=== PATIENT | male | born 1960 | race Caucasian/White ===

== ENCOUNTER 2017-01-08 03:20 | Emergency (ER) | payer MEDICARE, MEDICAID ==
[2017-01-08 03:23] VITALS: BP 143/105
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
[2017-01-08] MEDS ORDERED: Ibuprofen 800 MG Tab PO ONE (03:31)
--- NOTE | 2017-01-08 07:54 | CR ---
Left tibia and fibula: AP and lateral views of the left tibia and fibula were obtained. Comparison: No previous study. Degenerative change is seen within the knee. Ankle mortise is symmetric. Incidental spur at the attachment of the Achilles tendon to the calcaneus is seen. Mild deformity of the posterior malleolus is seen compatible with old injury. Detached bony density is noted off the anterior tibial tuberosity which is old. Nothing acute is seen. Impression: 1. Findings as noted above. No acute abnormality is identified on left tibia and fibula study. Diagnostic code #2
--- NOTE | 2017-01-08 07:55 | CR ---
Left knee: Three views of the left knee were obtained. Lateral positioning is suboptimal. Technique is also suboptimal. Degenerative spurring is noted off the medial and lateral compartments. Spurring noted at the attachment of the quadriceps and patellar tendons to the patella. Detached bony density is noted off the anterior tibial tuberosity which appears old. Mild spurring is noted off the lateral patellofemoral joint. Osteophytes are noted off the medial and lateral knee. Impression: 1. Degenerative change as noted above. No acute abnormality is appreciated on left knee exam. Diagnostic code #2
== END 2017-01-08 06:20 | disposition home or self-care (01) ==
LOC: JD.ED 03:20
DX: S80.02XA Contusion of left knee, initial encounter (principal); I10 Essential (primary) hypertension; J45.909 Unspecified asthma, uncomplicated; J44.9 Chronic obstructive pulmonary disease, unspecified; M19.90 Unspecified osteoarthritis, unspecified site; E66.9 Obesity, unspecified; Z87.891 Personal history of nicotine dependence; Z79.899 Other long term (current) drug therapy; V89.2XXA Person injured in unspecified motor-vehicle accident, traffic, initial encounter; Y92.410 Unspecified street and highway as the place of occurrence of the external cause
CPT/HCPCS: 73562; 73590; 99284; A9270; 99282

== ENCOUNTER 2020-02-01 05:27 | Emergency (ER) | payer MEDICARE, MEDICAID ==
[2020-02-01 06:10] VITALS: BP 191/96; PULSE 101
--- NOTE | 2020-02-01 06:37 | EDM.PDOC ---
<Benigno Riley - Last Filed: 02/01/20 08:30> ED HPI GENERAL MEDICAL PROBLEM - General Chief Complaint: Gastrointestinal Problem Stated Complaint: BLOOD IN STOOL Time Seen by Provider: 02/01/20 05:57 - Related Data Allergies Allergy/AdvReac Type Severity Reaction Status Date / Time No Known Allergies Allergy Verified 02/01/20 06:10 Home Meds: Home Meds Docusate Sodium [Stool Softener] 1 tab PO DAILY 10/08/15 [History] Albuterol/Ipratropium [DuoNeb 3.0-0.5 MG/3 ML] 3 ml NEB QID 10/17/15 [History] Metoprolol Succinate [Toprol Xl] 100 mg PO DAILY 10/17/15 [History] Cyclobenzaprine [Flexeril] 10 mg PO DAILY 01/08/17 [History] Course - Re-Assessments/Exams Free Text/Narrative Re-Assessment/Exam: 02/01/20 08:[address] Freire at change os shift. fleet enema with mineral oil was essentially ineffective for BM. KUB reveals increased stool in the descending colon and only mild stool Rt hemicolon. Plan: SS enema. Willl be discharged to take Citroma 8 oz po to provide bowl cleanse. Eventually patient reveals severe degenerative change within both hips with deformity of the femoral heads and the neck. Degenerative changes throughout the lumbar spine also appreciated with diffuse disc space narrowing as well as endplate osteophytes. SI joints appear to be within normal limits. Lysed him to purchase MiraLAX powder sent and take 17 g once daily to prevent further constipation problems. Departure - Departure Time of Disposition: 08:33 Disposition: Home, Self-Care 01 Condition: Fair Clinical Impression: Constipation by delayed colonic transit, Degenerative localized arthritis of hip - Discharge Information Instructions: Constipation, Adult, [id number] Referrals: Loren Ram NP [Primary Care Provider] - Messi Payton DO [Physician] - Forms: ED Department Discharge Additional Instructions: You were evaluated in the emergency room today in regards to constipation with no good bowel movement for about a week. X-rays reveal increased stool throughout about half of the colon. He was treated with a Fleet enema with mineral oil which was relatively ineffective. He was then given a soapsuds enema to help remove the lower colonic stool plug. Worked relatively well. Suggest taking magnesium citrate or Citroma 8 ounces by mouth when you get home this morning. Mixed with 4 to 6 ounces of juice of choice. This will usually start to work in an hour and your bowels will usually move 3 or 4 times providing complete bowel cleanse. I would suggest picking up MiraLAX powder which comes in a large container like a cookie jar. 1 scoop or 17 g daily will usually prevent constipation from reoccurring. Follow up with personal care doctor if any other problems occur. <Patrick Freire - Last Filed: 02/01/20 18:53> ED HPI GENERAL MEDICAL PROBLEM - General Source of Information: Reports: Patient History Limitations: Reports: No Limitations - History of Present Illness INITIAL COMMENTS - FREE TEXT/NARRATIVE: Mr. Armando is a very pleasant 59-year-old gentleman who now presents to the ED stating that he has not had a bowel movement in about a week, despite taking stool softeners on a regular basis. He has developed rectal urgency, and has been straining at the stool. He noticed blood on the toilet paper when he attempted to have a bowel movement this morning. Here in the ED, the patient's initial BP is found to be elevated at 191/96, with a tachycardia of 101 bpm. He is afebrile, saturating 95% on room air. The patient states that he has not taken his morning blood pressure medicines today. Other than the constipation issue, the patient denies recent fever, chills, sore throat, ear pain, nasal or sinus congestion, cough, dyspnea, chest pain, palpitations, nausea, vomiting, diarrhea, abdominal pain, urinary symptoms, recent weight gain or weight loss, recent bloody bowel movements or black bowel movements, recent joint aches, headaches, or rashes. The patient's PCP is Loren Ram NP. His medical marijuana is prescribed by Dr. Messi Payton, a cosmetic crm specialist in [place]. Past Medical History Cardiovascular History: Reports: Hypertension Musculoskeletal History: Reports: Osteoarthritis Psychiatric History: Reports: Addiction (opioids) Endocrine/Metabolic History: Reports: Obesity/BMI 30+ - Infectious Disease History Infectious Disease History: Reports: MRSA - Past Surgical History GI Surgical History: Reports: Hernia, Abdominal (periumbilical, as a child) Social & Family History - Tobacco Use Smoking Status *Q: Former Smoker Years of Tobacco use: 38 Packs/Tins Daily: 2 Month/Year Tobacco Last Used: Quit 2017 - Alcohol Use Alcohol Use History: Yes Alcohol Use Frequency: Socially - Recreational Drug Use Recreational Drug Use: Yes Drug Use in Last 12 Months: Yes Recreational Drug Type: Reports: Marijuana/Hashish (smokes daily), Other (see below) (Previous addiction to opioids) - Living Situation & Occupation Living situation: Reports: Single, Alone Occupation: Unemployed ED ROS GENERAL - Review of Systems Review Of Systems: Comprehensive ROS is negative, except as noted in HPI. Musculoskeletal: Reports: Back Pain (chronic) ED EXAM, GI/ABD - Physical Exam Exam: See Below Exam Limited By: No Limitations General Appearance: Alert, WD/WN, No Apparent Distress Eyes: Bilateral: Normal Appearance, EOMI Ears: Normal External Exam, Hearing Grossly Normal Nose: Normal Inspection Throat/Mouth: Normal Inspection, Normal Lips, Normal Voice, No Airway Compromise Head: Atraumatic, Normocephalic Neck: Normal Inspection, Full Range of Motion Respiratory/Chest: No Respiratory Distress, Lungs Clear, Normal Breath Sounds, No Accessory Muscle Use Cardiovascular: Normal Peripheral Pulses, Regular Rate, Rhythm, No Edema, No Gallop, No JVD, No Murmur, No Rub GI/Abdominal Exam: Normal Bowel Sounds, Soft, Non-Tender, No Organomegaly, No Distention, No Abnormal Bruit, No Mass (Male) Exam: Deferred Rectal (Males) Exam: Normal Rectal Tone, Heme + Stool (very firm) Back Exam: Normal Inspection, Full Range of Motion, NT Extremities: Normal Inspection, Normal Range of Motion, No Pedal Edema, Normal Capillary Refill Neurological: Alert, Oriented, Normal Cognition, No Motor/Sensory Deficits Psychiatric: Normal Affect Skin Exam: Warm, Dry, Intact, Normal Color, No Rash Course - Vital Signs Last Recorded V/S: Last Vital Signs Temp 36.4 C 02/01/20 06:02 Pulse 101 H 02/01/20 06:02 Resp 20 02/01/20 06:02 BP 191/96 H 02/01/20 06:02 Pulse Ox 95 02/01/20 06:02 - Orders/Labs/Meds Orders: Active Orders 24 hr Category Date Time Status Enema [RC] ASDIRECTED Care 02/01/20 06:35 Active Meds: Medications Discontinued Medications Generic Name Dose Route Start Last Admin Trade Name Freq PRN Reason Stop Dose Admin Magnesium Citrate 240 ml 02/01/20 08:19 02/01/20 08:31 Citrate Of Magnesia PO 02/01/20 08:20 240 ml ONETIME ONE Administration - Re-Assessments/Exams Free Text/Narrative Re-Assessment/Exam: 02/01/20 06:32 As above, the patient states that he has not had a bowel movement in about a week, that he has been taking stool softeners but is still straining at the stool, then had blood on the toilet paper this morning. On rectal examination, the patient has very firm stool that would likely benefit from disimpaction, however, it is just beyond the reach of my finger, therefore we will need to try to soften the stool with an enema. The patient has agreed. 02/01/20 07:[address] Riley, and care of the patient turned over to him at this time, for change of shift. 02/01/20 07:32 Notified by Sandra ROSALES that the patient had no stool output following a mineral oil enema. I have therefore ordered a flat abdomen x-ray as well as a soapsuds enema. 02/01/20 07:[address] Riley, and care of the patient turned over to him at this time, for change of shift. Departure - Discharge Information *PRESCRIPTION DRUG MONITORING PROGRAM REVIEWED*: Not Applicable *COPY OF PRESCRIPTION DRUG MONITORING REPORT IN PATIENT JUSTA: Not Applicable Sepsis Event Note (ED) - Evaluation Sepsis Screening Result: No Definite Risk - My Orders Last 24 Hours: My Active Orders 02/01/20 06:35 Enema [RC] ASDIRECTED - Assessment/Plan Last 24 Hours: My Active Orders 02/01/20 06:35 Enema [RC] ASDIRECTED
[2020-02-01] MEDS ORDERED: Magnesium Citrate Solution 296 ML Bottle PO ONE (08:19)
--- NOTE | 2020-02-01 08:26 | CR ---
Abdomen: Supine view of the abdomen was obtained. Comparison: No previous abdominal x-ray. Severe degenerative change noted within both hips. Deformity of both femoral heads and neck is seen. Diffuse joint space narrowing and subchondral cysts are seen. Diffuse disc space narrowing is noted within the visualized lower lumbar spine as well as endplate osteophytes. Sacroiliac joints appear within normal limits. Bowel gas pattern is normal. No abnormal calcifications or soft tissue abnormality is seen. Impression: 1. Severe degenerative change within both hips with deformity of the femoral heads and neck. 2. Degenerative change within the lumbar spine. 3. Nothing acute is otherwise is seen on supine abdominal x-ray. Diagnostic code #2 This report was dictated in MDT
== END 2020-02-01 08:35 | disposition home or self-care (01) ==
LOC: JD.ED 05:27
DX: K59.01 Slow transit constipation (principal); M16.10 Unilateral primary osteoarthritis, unspecified hip; I10 Essential (primary) hypertension; E66.9 Obesity, unspecified; Z87.891 Personal history of nicotine dependence; Z79.899 Other long term (current) drug therapy; Z68.41 Body mass index [BMI] 40.0-44.9, adult
CPT/HCPCS: 74018; 99283; A9270; 99282

== ENCOUNTER 2020-02-01 18:52 | Emergency (ER) | payer MEDICARE, MEDICAID ==
--- NOTE | 2020-02-01 20:19 | EDM.PDOC ---
ED HPI GENERAL MEDICAL PROBLEM - General Chief Complaint: Chest Pain Stated Complaint: NEW MEDS NOT FEELING WELL Time Seen by Provider: 02/01/20 20:01 Source of Information: Reports: Patient History Limitations: Reports: No Limitations - History of Present Illness INITIAL COMMENTS - FREE TEXT/NARRATIVE: Mr. Armando is a very pleasant 59-year-old gentleman who was seen by me in this ED this morning, with a complaint at that time of constipation, not having had a bowel movement in about a week, despite taking stool softeners on a regular basis. He had developed rectal urgency, and had been straining at the stool. He noticed blood on the toilet paper when he attempted to have a bowel movement this morning, which prompted him to come to the ED. On rectal exam, the patient was found to have a very firm heme positive stool. He was given an enema with no stool output. A subsequent flat plate abdominal x-ray demonstrated some stool in the descending colon, but no stool in the rectum. He was given an additional enema with the recommendation that he drink 8 ounces of Citroma to provide a bowel cleanse, then start taking MiraLAX 17 g daily to prevent constipation in the future. The patient now returns to the ED stating that his sister thought he should come, because she thought he was having a stroke. The patient reports that he felt lightheaded today, but he is unable to say when that began, and he is unable to say whether or not it is modifiable with position. He also states that he had some retrosternal chest discomfort, possibly crampy, possibly pinching sensation, since around 16:00. He does not recall if it was sudden onset or gradual onset, and he is unable to say whether it has been constant or variable. When asked about this, he repeatedly defers to his sister, stating that she thought that he was having a stroke. It is unclear if the patient himself actually experienced chest discomfort. The patient also reports having left shoulder pain since this morning, ever since I asked him to roll over onto his left side so that I could perform a rectal exam. The patient states that he has had similar symptoms a few times in the past, and states that he has been work-up in the past, but does not recall what the diagnosis or recommended treatment was. The patient states that he did not drink Citroma after discharge from the ED this morning, that he had a bowel movement, and that he now feels fine. Here in the ED, the patient's initial BP is found to be elevated at 152/85, otherwise, he is hemodynamically stable, afebrile, saturating 95% on room air. Other than his constipation issue, and today's lightheadedness and possible chest discomfort, the patient denies recent fever, chills, sore throat, ear pain, nasal or sinus congestion, cough, dyspnea, palpitations, nausea, vomiting, diarrhea, abdominal pain, urinary symptoms, recent weight gain or weight loss, recent bloody bowel movements or black bowel movements, recent joint aches, headaches, or rashes. The patient's PCP is Loren Ram NP. His medical marijuana is prescribed by Dr. Messi Payton, a cosmetic sight effects specialist in [place]. Left Shoulder Pain Score (Numeric/FACES): 4 - Related Data Allergies Allergy/AdvReac Type Severity Reaction Status Date / Time No Known Allergies Allergy Verified 02/01/20 19:08 Home Meds: Home Meds Docusate Sodium [Stool Softener] 1 tab PO DAILY 10/08/15 [History] Albuterol/Ipratropium [DuoNeb 3.0-0.5 MG/3 ML] 3 ml NEB QID 10/17/15 [History] Metoprolol Succinate [Toprol Xl] 100 mg PO DAILY 10/17/15 [History] Cyclobenzaprine [Flexeril] 10 mg PO DAILY 01/08/17 [History] Past Medical History Cardiovascular History: Reports: Hypertension Musculoskeletal History: Reports: Osteoarthritis Psychiatric History: Reports: Addiction (opioids) Endocrine/Metabolic History: Reports: Obesity/BMI 30+ - Infectious Disease History Infectious Disease History: Reports: MRSA - Past Surgical History GI Surgical History: Reports: Hernia, Abdominal (periumbilical, as a child) Social & Family History - Tobacco Use Smoking Status *Q: Former Smoker Years of Tobacco use: 38 Packs/Tins Daily: 2 Month/Year Tobacco Last Used: Quit 2017 - Caffeine Use Caffeine Use: Reports: None - Alcohol Use Alcohol Use History: Yes Alcohol Use Frequency: Socially - Recreational Drug Use Recreational Drug Use: Yes Drug Use in Last 12 Months: Yes Recreational Drug Type: Reports: Marijuana/Hashish (smokes daily), Other (see below) (Previous addiction to opioids) - Living Situation & Occupation Living situation: Reports: Single, Alone Occupation: Unemployed ED ROS GENERAL - Review of Systems Review Of Systems: Comprehensive ROS is negative, except as noted in HPI. ED EXAM, GENERAL - Physical Exam Exam: See Below Exam Limited By: No Limitations General Appearance: Alert, WD/WN, No Apparent Distress Eye Exam: Bilateral Eye: EOMI, Normal Inspection Ears: Normal External Exam, Hearing Grossly Normal Nose: Normal Inspection Throat/Mouth: Normal Inspection, Normal Lips, Normal Voice, No Airway Compromise Head: Atraumatic, Normocephalic Neck: Normal Inspection, Full Range of Motion Respiratory/Chest: No Respiratory Distress, Lungs Clear, Normal Breath Sounds, No Accessory Muscle Use Cardiovascular: Normal Peripheral Pulses, Regular Rate, Rhythm, No Gallop, No JVD, No Murmur, No Rub Peripheral Pulses: 3+: Radial (L), Radial (R) GI/Abdominal: Normal Bowel Sounds, Soft, Non-Tender, No Organomegaly, No Distention, No Abnormal Bruit, No Mass (Male) Exam: Deferred Rectal (Males) Exam: Deferred Back Exam: Normal Inspection, Full Range of Motion, NT Extremities: Normal Inspection, Normal Range of Motion, No Pedal Edema, Normal Capillary Refill Neurological: Alert, Oriented, Normal Cognition, No Motor/Sensory Deficits Psychiatric: Normal Affect Skin Exam: Warm, Dry, Intact, Normal Color, No Rash EKG INTERPRETATION EKG Date: 02/01/20 Time: 19:37 Rhythm: NSR Rate (Beats/Min): 93 [place]: Normal P-Wave: Enlarged (LAE) QRS: Normal ST-T: Normal QT: Normal Comparison: No Change (10/24/2015) Course - Vital Signs Last Recorded V/S: Last Vital Signs Temp 36.1 C 02/01/20 19:00 Pulse 99 02/01/20 19:00 Resp 22 H 02/01/20 19:00 BP 152/85 H 02/01/20 19:00 Pulse Ox 95 02/01/20 19:00 Orthostatic Blood Pressure [ 173/90 Standing] Orthostatic Blood Pressure [ 155/78 Supine] - Orders/Labs/Meds Orders: Active Orders 24 hr Category Date Time Status EKG Documentation Completion [RC] ASDIRECTED Care 02/01/20 19:31 Active Orthostatic Vital Signs [RC] STAT Care 02/01/20 20:15 Active Ang Chest [CT] Stat Exams 02/01/20 22:00 Taken Chest 2V [CR] Stat Exams 02/01/20 20:15 Taken Sodium Chloride 0.9% [Normal Saline] 1,000 ml Med 02/01/20 22:00 Active IV ASDIRECTED EKG 12 Lead [EK] Stat Ther 02/01/20 19:30 Ordered Medication Orders Sodium Chloride (Normal Saline) 1,000 mls @ 150 mls/hr IV ASDIRECTED GRACE Last Admin: 02/01/20 22:12 Dose: 150 mls/hr Documented by: ASHLYN Labs: Laboratory Tests 02/01/20 02/01/20 02/01/20 Range/Units 19:36 19:36 19:36 WBC 10.04 H (4.23-9.07) K/mm3 RBC 4.98 (4.63-6.08) M/mm3 Hgb 13.9 D (13.7-17.5) gm/dl Hct 42.5 (40.1-51.0) % MCV 85.3 D (79.0-92.2) fl MCH 27.9 (25.7-32.2) pg MCHC 32.7 (32.2-35.5) g/dl RDW Std Deviation 43.0 (35.1-43.9) fL Plt Count 203 D (163-337) K/mm3 MPV 11.1 (9.4-12.3) fl Neut % (Auto) 80.9 H (34.0-67.9) % Lymph % (Auto) 10.4 L (21.8-53.1) % [place] % (Auto) 8.2 (5.3-12.2) % Eos % (Auto) 0.1 L (0.8-7.0) Baso % (Auto) 0.2 (0.1-1.2) % Neut # (Auto) 8.13 H (1.78-5.38) K/mm3 Lymph # (Auto) 1.04 L (1.32-3.57) K/mm3 [place] # (Auto) 0.82 (0.30-0.82) K/mm3 Eos # (Auto) 0.01 L (0.04-0.54) K/mm3 Baso # (Auto) 0.02 (0.01-0.08) K/mm3 Manual Slide Review Abnormal smear D-Dimer, Quantitative (0.19-0.50) mg/L Sodium 142 (136-145) mEq/L Potassium 3.2 L (3.5-5.1) mEq/L Chloride 104 (98-107) mEq/L Carbon Dioxide 24 (21-32) mEq/L Anion Gap 17.2 H (5-15) BUN 24 H (7-18) mg/dL Creatinine 1.2 (0.7-1.3) mg/dL Est Cr Clr Drug Dosing 67.92 mL/min Estimated GFR (MDRD) > 60 (>60) mL/min BUN/Creatinine Ratio 20.0 H (14-18) Glucose 103 (74-106) mg/dL Calcium 9.3 (8.5-10.1) mg/dL Magnesium 1.7 L (1.8-2.4) mg/dl Total Bilirubin 1.0 (0.2-1.0) mg/dL AST 31 (15-37) U/L ALT 35 (16-63) U/L Alkaline Phosphatase 71 (46-116) U/L Troponin I < 0.017 (0.00-0.056) ng/mL Total Protein 7.9 (6.4-8.2) g/dl Albumin 4.2 (3.4-5.0) g/dl Globulin 3.7 gm/dL Albumin/Globulin Ratio 1.1 (1-2) /23/20 Range/Units 20:25 WBC (4.23-9.07) K/mm3 RBC (4.63-6.08) M/mm3 Hgb (13.7-17.5) gm/dl Hct (40.1-51.0) % MCV (79.0-92.2) fl MCH (25.7-32.2) pg MCHC (32.2-35.5) g/dl RDW Std Deviation (35.1-43.9) fL Plt Count (163-337) K/mm3 MPV (9.4-12.3) fl Neut % (Auto) (34.0-67.9) % Lymph % (Auto) (21.8-53.1) % [place] % (Auto) (5.3-12.2) % Eos % (Auto) (0.8-7.0) Baso % (Auto) (0.1-1.2) % Neut # (Auto) (1.78-5.38) K/mm3 Lymph # (Auto) (1.32-3.57) K/mm3 [place] # (Auto) (0.30-0.82) K/mm3 Eos # (Auto) (0.04-0.54) K/mm3 Baso # (Auto) (0.01-0.08) K/mm3 Manual Slide Review D-Dimer, Quantitative 0.96 H (0.19-0.50) mg/L Sodium (136-145) mEq/L Potassium (3.5-5.1) mEq/L Chloride (98-107) mEq/L Carbon Dioxide (21-32) mEq/L Anion Gap (5-15) BUN (7-18) mg/dL Creatinine (0.7-1.3) mg/dL Est Cr Clr Drug Dosing mL/min Estimated GFR (MDRD) (>60) mL/min BUN/Creatinine Ratio (14-18) Glucose (74-106) mg/dL Calcium (8.5-10.1) mg/dL Magnesium (1.8-2.4) mg/dl Total Bilirubin (0.2-1.0) mg/dL AST (15-37) U/L ALT (16-63) U/L Alkaline Phosphatase (46-116) U/L Troponin I (0.00-0.056) ng/mL Total Protein (6.4-8.2) g/dl Albumin (3.4-5.0) g/dl Globulin gm/dL Albumin/Globulin Ratio (1-2) Meds: Medications Generic Name Dose Route Start Last Admin Trade Name Freq PRN Reason Stop Dose Admin Sodium Chloride 1,000 mls @ 150 mls/hr 02/01/20 22:00 02/01/20 22:12 Normal Saline IV 150 mls/hr ASDIRECTED GRACE Administration Discontinued Medications Generic Name Dose Route Start Last Admin Trade Name Freq PRN Reason Stop Dose Admin Potassium Chloride 40 meq 02/01/20 21:39 02/01/20 22:11 Klor-Con M20 PO 02/01/20 21:40 40 meq ONETIME ONE Administration - Re-Assessments/Exams Free Text/Narrative Re-Assessment/Exam: 02/01/20 20:16 As above, the patient returned to the ED after developing lightheadedness sometime today, and minimal retrosternal chest discomfort, possibly crampy versus pinching in character, around 16:00 this afternoon, however, it appears that the primary reason that the patient came to the ED is because, according to the patient, his sister told him that he might be having a stroke, even though he is not suffering from any focal neurologic deficits. I am not even certain that the patient was experiencing chest discomfort, because he keeps deferring to his sister when asked what happened that caused him to come to the ED. An ECG, obtained at triage, shows no ischemic changes. A CBC and CMP were already ordered. I have added a troponin, magnesium level, D-dimer, chest x- ray, and orthostatics. 02/01/20 21:39 Two-view chest radiograph appears to be grossly normal. The cardiac silhouette is within normal limits. No pulmonary vascular congestion. No pleural effusions. No focal infiltrate. No pneumothorax. Formal read per the Radiologist pending. 02/01/20 21:56 The patient is not orthostatic. His CBC is remarkable for a WBC count mildly elevated at 10.04, with the remainder of his CBC being unremarkable. His CMP is remarkable for a potassium mildly depressed at 3.2, and anion gap mildly elevated at 17.2 but with a bicarbonate normal at 24, and a BUN mildly elevated at 24 with a Cr normal at 1.2, with the remainder of his CMP being unremarkable. His magnesium level is slightly depressed at 1.7. His troponin is undetectably low. His D-dimer is mildly elevated at 0.96. 02/01/20 22:00 Test results discussed with the patient. As above, today's work-up is unremarkable, with the exception of a modestly elevated D-dimer. I do not feel that his elevated d-dimer is consistent with a pulmonary embolus, however, I did offer a CT angiogram if the patient wanted to be absolutely certain, and the patient agreed. I have therefore ordered a CT angiogram of the chest, along with IV fluid. 02/01/20 23:30 CT angiogram of the chest is read by Arleen as: 1. No pulmonary embolism within the main or lobar pulmonary arteries. 2. Small airways disease. Diffuse bronchial wall thickening with areas suggestive of mucous plugging. Bilateral multifocal poorly defined centrilobular nodules with upper lobe predominance, with questionable areas of tree-in-bud distribution. Differential diagnosis includes infectious etiologies, hypersensitivity pneumonitis and respiratory bronchiolitis interstitial lung disease, other etiologies are not excluded. 3. Additional nonacute findings as above. 02/01/20 23:33 CT results discussed with the patient. As above, the CT scan indicates that the patient has underlying interstitial lung disease. The patient has previously suspected asthma or COPD. No emergent change in his management is indicated. I will discharge him home. Departure - Departure Time of Disposition: 23:33 Disposition: Home, Self-Care 01 Condition: Good Clinical Impression: Lightheaded, Chest discomfort, Hypokalemia, Interstitial lung disease - Discharge Information *PRESCRIPTION DRUG MONITORING PROGRAM REVIEWED*: Not Applicable *COPY OF PRESCRIPTION DRUG MONITORING REPORT IN PATIENT JUSTA: Not Applicable Instructions: Near-Syncope, [id number], Dizziness, [id number] Referrals: Loren Ram NP [Primary Care Provider] - Messi Payton DO [Physician] - Forms: ED Department Discharge Additional Instructions: You were seen in the emergency room after developing lightheadedness today, then chest discomfort. Work-up in the ER included blood work, positional blood pressure checks, a chest x-ray, a CT angiogram of your chest, and an ECG. Your work-up found your potassium level to be mildly depressed at 3.2. You were given oral potassium replacement. The CT angiogram demonstrated findings consistent with interstitial lung disease, which was already suspected in you. The remainder of your work-up was unremarkable. You have not suffered a heart attack. You do not have a blood clot in your lungs. You do not have pneumonia. We recommend that you continue to take your usual medications as prescribed. Follow-up with your PCP, Loren Ram NP, as needed. If any other problems, please do not hesitate to return to the ER. Sepsis Event Note (ED) - Evaluation Sepsis Screening Result: No Definite Risk - Focused Exam Vital Signs: Vital Signs Temp Pulse Resp BP Pulse Ox 02/01/20 19:00 36.1 C 99 22 H 152/85 H 95 - My Orders Last 24 Hours: My Active Orders 02/01/20 19:30 EKG 12 Lead [EK] Stat 02/01/20 19:31 EKG Documentation Completion [RC] ASDIRECTED 02/01/20 20:15 Orthostatic Vital Signs [RC] STAT Chest 2V [CR] Stat 02/01/20 22:00 Ang Chest [CT] Stat Sodium Chloride 0.9% [Normal Saline] 1,000 ml IV ASDIRECTED - Assessment/Plan Last 24 Hours: My Active Orders 02/01/20 19:30 EKG 12 Lead [EK] Stat 02/01/20 19:31 EKG Documentation Completion [RC] ASDIRECTED 02/01/20 20:15 Orthostatic Vital Signs [RC] STAT Chest 2V [CR] Stat 02/01/20 22:00 Ang Chest [CT] Stat Sodium Chloride 0.9% [Normal Saline] 1,000 ml IV ASDIRECTED
[2020-02-01] MEDS ORDERED: Potassium Chloride 20 MEQ Tab.ER PO ONE (21:39)
[2020-02-01] MEDS ORDERED: Sodium Chloride 0.9% 1,000 ML IV SCH (22:00)
[2020-02-01 23:53] VITALS: BP 152/75; PULSE 88
--- NOTE | 2020-02-02 08:42 | CR ---
Chest: 2 views of the chest were obtained. Comparison: Previous chest x-ray of 10/07/15 is available. Heart size and mediastinum are normal. Lungs are clear with no acute parenchymal change. Slight degenerative spurring is noted within the spine with minimal scattered areas of disc space narrowing. Impression: 1. Nothing acute is appreciated on 2 view chest x-ray. Diagnostic code #2 This report was dictated in MDT
--- NOTE | 2020-02-02 09:20 | CT ---
CT chest Technique: Multiple axial sections through the chest were obtained. Intravenous contrast was utilized. Study has been performed as a pulmonary angiogram protocol. Findings: Pulmonary arteries are not optimally opacified. No filling defects are seen within the main or segmental branches. Smaller subsegmental pulmonary emboli could be missed. Slightly prominent lymph node is noted within the lower mediastinum inferior to the precarinal region. Other lymph nodes appear within normal limits and this is most likely relates to old inflammatory disease. Mild coronary artery calcification is noted. No pericardial thickening is seen. Visualized upper abdominal structures show nothing acute. Slight interstitial change is seen within both lungs. Linear density is noted within the lingula either due to scarring or atelectasis. Lungs otherwise are clear. No alveolar type densities are noted. Impression: 1. No findings of pulmonary emboli within the main or segmental branches. Smaller subsegmental pulmonary emboli could be missed. 2. Interstitial change is seen throughout both lungs. Differential includes infectious small airway bronchitis as well as hypersensitivity pneumonitis and developing interstitial lung disease. 3. Other findings believed to be nonacute as noted above. Diagnostic code #3 This report was dictated in MDT I agree with preliminary report from ad, finalized on 02/02/20, 12:13 AM Central Daylight Time
== END 2020-02-01 23:48 | disposition home or self-care (01) ==
LOC: JD.ED 18:52
DX: J84.9 Interstitial pulmonary disease, unspecified (principal); E87.6 Hypokalemia; R07.9 Chest pain, unspecified; I10 Essential (primary) hypertension; R42 Dizziness and giddiness; E66.9 Obesity, unspecified; Z87.891 Personal history of nicotine dependence; Z68.41 Body mass index [BMI] 40.0-44.9, adult; Z79.899 Other long term (current) drug therapy
CPT/HCPCS: 36415; 71046; 71275; 80053; 83735; 84484; 85025; 85379; 93005; 96360; 96361; 99285; A9270; J7030; 93010; 99283

== ENCOUNTER 2020-02-02 05:44 | Emergency (ER) | payer MEDICARE, MEDICAID ==
[2020-02-02 05:55] VITALS: BP 169/91; PULSE 99
--- NOTE | 2020-02-02 08:21 | EDM.PDOCBH ---
ED HPI GENERAL MEDICAL PROBLEM - General Chief Complaint: Behavioral/Psych Stated Complaint: [facility] Time Seen by Provider: 02/02/20 06:11 - History of Present Illness INITIAL COMMENTS - FREE TEXT/NARRATIVE: 59-year-old male presents the emergency room with hallucinations. The patient was signed in a couple hours ago and then decided to leave however he was sitting in the waiting room and nursing discussed the situation with him and the patient decided to be seen' Today the patient was driving and heard somebody talking to him. The patient is convinced somebody was talking to him. He drove to the police station where the police cannot identify anybody in his car other than him. At this point the patient denies hearing any voices however he did have this incident this morning where he heard somebody talk to him and he is convinced somebody was talking to him. Patient has not had problems with this in the past patient denies any significant head injuries recently or any falls however he has been dizzier than normal. The patient was seen twice here yesterday once for chest discomfort work-up was negative and before this he was seen for constipation. Patient denies having any chest pain since what brought him in yesterday and he has not had any more abdominal discomfort he was given a mag citrate and started on MiraLAX. Patient denies any suicidal or homicidal thoughts at this point. The patient was brought in by EMS he was picked up with the police station as he drove there as he was convinced somebody was talking to him in his car. - Related Data Allergies Allergy/AdvReac Type Severity Reaction Status Date / Time No Known Allergies Allergy Verified 02/01/20 19:08 Home Meds: Home Meds Docusate Sodium [Stool Softener] 1 tab PO DAILY 10/08/15 [History] Albuterol/Ipratropium [DuoNeb 3.0-0.5 MG/3 ML] 3 ml NEB QID 10/17/15 [History] Metoprolol Succinate [Toprol Xl] 100 mg PO DAILY 10/17/15 [History] Cyclobenzaprine [Flexeril] 10 mg PO DAILY 01/08/17 [History] Ibuprofen 800 mg PO TID 02/02/20 [History] Past Medical History HEENT History: Reports: Hard of Hearing, Other (See Below) Other HEENT History: [place] to rt ear Cardiovascular History: Reports: Hypertension Respiratory History: Reports: Asthma, COPD, SOB Musculoskeletal History: Reports: Osteoarthritis Other Musculoskeletal History: Chronic right hip pain. 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 Psychiatric History: Reports: Addiction (opioids) Endocrine/Metabolic History: Reports: Obesity/BMI 30+ Dermatologic History: Reports: Cellulitis - Infectious Disease History Infectious Disease History: Reports: MRSA Other Infectious Disease History: perianal - Past Surgical History GI Surgical History: Reports: Hernia, Abdominal (periumbilical, as a child) Social & Family History - Caffeine Use Caffeine Use: Reports: None - Living Situation & Occupation Living situation: Reports: Single, Alone Occupation: Unemployed ED ROS GENERAL - Review of Systems Review Of Systems: See Below Constitutional: Reports: No Symptoms HEENT: Reports: No Symptoms Respiratory: Reports: No Symptoms Cardiovascular: Reports: No Symptoms GI/Abdominal: Denies: No Symptoms, Abdominal Pain, Nausea, Vomiting : Reports: No Symptoms Musculoskeletal: Reports: No Symptoms Skin: Reports: No Symptoms Neurological: Reports: Dizziness Psychiatric: Reports: Hallucinations Hematologic/Lymphatic: Reports: No Symptoms Immunologic: Reports: No Symptoms ED EXAM, BEHAVIORAL HEALTH - Physical Exam Exam: See Below Exam Limited By: No Limitations General Appearance: Alert, No Apparent Distress Eye Exam: Bilateral Eye: Normal Inspection Ears: Normal External Exam, Normal Canal, Hearing Grossly Normal, Normal TMs Nose: Normal Inspection, Normal Mucosa, No Blood Throat/Mouth: Normal Inspection Head: Atraumatic, Normocephalic Neck: Normal Inspection, Supple, Non-Tender. No: Lymphadenopathy (L), Lymphadenopathy (R) Respiratory/Chest: No Respiratory Distress, Lungs Clear, Normal Breath Sounds Cardiovascular: Regular Rate, Rhythm, No Edema, No Murmur GI/Abdominal: Normal Bowel Sounds, Soft, Non-Tender, Other (Patient is significantly obese) Back Exam: Normal Inspection. No: CVA Tenderness (L), CVA Tenderness (R) Extremities: Normal Inspection, No Pedal Edema Neurological: Alert, Normal Mood/Affect, Normal Cognition Psychiatric: Alert, Normal Affect, Normal Cognition, Other (Is perfectly communicative, denies any history of hallucinations and is convinced he is not hearing any hallucinations at this time. However he does describe somebody talking to him in his car and this voice did say it may harm him.) COURSE, BEHAVIORAL HEALTH COMP - Course Vital Signs: Last Vital Signs Temp 35.8 C L 02/02/20 05:50 Pulse 99 02/02/20 05:50 Resp 16 02/02/20 05:50 BP 169/91 H 02/02/20 05:50 Pulse Ox 96 02/02/20 05:50 Orders, Labs, Meds: Laboratory Tests 02/02/20 02/02/20 02/02/20 Range/Units 09:11 09:11 12:07 WBC 10.56 H (4.23-9.07) K/mm3 RBC 4.98 (4.63-6.08) M/mm3 Hgb 14.2 (13.7-17.5) gm/dl Hct 42.4 (40.1-51.0) % MCV 85.1 (79.0-92.2) fl MCH 28.5 (25.7-32.2) pg MCHC 33.5 (32.2-35.5) g/dl RDW Std Deviation 42.4 (35.1-43.9) fL Plt Count 204 (163-337) K/mm3 MPV 10.5 (9.4-12.3) fl Neut % (Auto) 81.8 H (34.0-67.9) % Lymph % (Auto) 9.7 L (21.8-53.1) % [place] % (Auto) 7.9 (5.3-12.2) % Eos % (Auto) 0.2 L (0.8-7.0) Baso % (Auto) 0.3 (0.1-1.2) % Neut # (Auto) 8.65 H (1.78-5.38) K/mm3 Lymph # (Auto) 1.02 L (1.32-3.57) K/mm3 [place] # (Auto) 0.83 H (0.30-0.82) K/mm3 Eos # (Auto) 0.02 L (0.04-0.54) K/mm3 Baso # (Auto) 0.03 (0.01-0.08) K/mm3 Manual Slide Review Normal smear Sodium 141 (136-145) mEq/L Potassium 3.4 L (3.5-5.1) mEq/L Chloride 104 (98-107) mEq/L Carbon Dioxide 25 (21-32) mEq/L Anion Gap 15.4 H (5-15) BUN 23 H (7-18) mg/dL Creatinine 0.9 (0.7-1.3) mg/dL Est Cr Clr Drug Dosing 90.56 mL/min Estimated GFR (MDRD) > 60 (>60) mL/min BUN/Creatinine Ratio 25.6 H (14-18) Glucose 100 (74-106) mg/dL Calcium 9.3 (8.5-10.1) mg/dL Total Bilirubin 1.1 H (0.2-1.0) mg/dL AST 40 H (15-37) U/L ALT 37 (16-63) U/L Alkaline Phosphatase 76 (46-116) U/L Total Protein 8.1 (6.4-8.2) g/dl Albumin 4.3 (3.4-5.0) g/dl Globulin 3.8 gm/dL Albumin/Globulin Ratio 1.1 (1-2) TSH 3rd Generation 0.518 (0.358-3.74) uIU/mL Urine Color Yellow (Yellow) Urine Appearance Clear (Clear) Urine pH 6.0 (5.0-8.0) Ur Specific [place] 1.020 (1.005-1.030) Urine Protein Negative (Negative) Urine Glucose (UA) Negative (Negative) Urine Ketones Trace H (Negative) Urine Occult Blood Negative (Negative) Urine Nitrite Negative (Negative) Urine Bilirubin 1+ H (Negative) Urine Urobilinogen 1.0 (0.2-1.0) Ur Leukocyte Esterase Negative (Negative) Urine Opiates Screen (ESVMHQ=298) Ur Buprenorphine Scrn (CUTOFF=10) Ur Oxycodone Screen (YOC8IL=382) Urine Methadone Screen (OBE9BP=471) Ur Propoxyphene Screen (UUPTYA=028) Ur Barbiturates Screen (GBNTYP=432) Ur Tricyclics Screen (BZURBE=911) Ur Phencyclidine Scrn (CUTOFF=25) Ur Amphetamine Screen (GCCMNO=049) U Methamphetamines Scrn (SZQLMO=364) U Benzodiazepines Scrn (FEUSBB=081) U Cocaine Metab Screen (PYDQBB=933) U Marijuana (THC) Screen (CUTOFF=50) Ethyl Alcohol < 0.00 L (0.00) gm% 02/02/20 Range/Units 12:07 WBC (4.23-9.07) K/mm3 RBC (4.63-6.08) M/mm3 Hgb (13.7-17.5) gm/dl Hct (40.1-51.0) % MCV (79.0-92.2) fl MCH (25.7-32.2) pg MCHC (32.2-35.5) g/dl RDW Std Deviation (35.1-43.9) fL Plt Count (163-337) K/mm3 MPV (9.4-12.3) fl Neut % (Auto) (34.0-67.9) % Lymph % (Auto) (21.8-53.1) % [place] % (Auto) (5.3-12.2) % Eos % (Auto) (0.8-7.0) Baso % (Auto) (0.1-1.2) % Neut # (Auto) (1.78-5.38) K/mm3 Lymph # (Auto) (1.32-3.57) K/mm3 [place] # (Auto) (0.30-0.82) K/mm3 Eos # (Auto) (0.04-0.54) K/mm3 Baso # (Auto) (0.01-0.08) K/mm3 Manual Slide Review Sodium (136-145) mEq/L Potassium (3.5-5.1) mEq/L Chloride (98-107) mEq/L Carbon Dioxide (21-32) mEq/L Anion Gap (5-15) BUN (7-18) mg/dL Creatinine (0.7-1.3) mg/dL Est Cr Clr Drug Dosing mL/min Estimated GFR (MDRD) (>60) mL/min BUN/Creatinine Ratio (14-18) Glucose (74-106) mg/dL Calcium (8.5-10.1) mg/dL Total Bilirubin (0.2-1.0) mg/dL AST (15-37) U/L ALT (16-63) U/L Alkaline Phosphatase (46-116) U/L Total Protein (6.4-8.2) g/dl Albumin (3.4-5.0) g/dl Globulin gm/dL Albumin/Globulin Ratio (1-2) TSH 3rd Generation (0.358-3.74) uIU/mL Urine Color (Yellow) Urine Appearance (Clear) Urine pH (5.0-8.0) Ur Specific [place] (1.005-1.030) Urine Protein (Negative) Urine Glucose (UA) (Negative) Urine Ketones (Negative) Urine Occult Blood (Negative) Urine Nitrite (Negative) Urine Bilirubin (Negative) Urine Urobilinogen (0.2-1.0) Ur Leukocyte Esterase (Negative) Urine Opiates Screen Negative (XSFOMB=712) Ur Buprenorphine Scrn Negative (CUTOFF=10) Ur Oxycodone Screen Negative (HNM2LW=104) Urine Methadone Screen Negative (WPW7ZZ=390) Ur Propoxyphene Screen Negative (RDGYPV=048) Ur Barbiturates Screen Negative (ZCHNLR=306) Ur Tricyclics Screen Presumptive positive H (VYPMFL=983) Ur Phencyclidine Scrn Negative (CUTOFF=25) Ur Amphetamine Screen Negative (MHTFUK=062) U Methamphetamines Scrn Negative (GGKPLP=786) U Benzodiazepines Scrn Negative (ZDCYHV=928) U Cocaine Metab Screen Negative (FSKACD=801) U Marijuana (THC) Screen Presumptive positive H (CUTOFF=50) Ethyl Alcohol (0.00) gm% Medications Discontinued Medications Generic Name Dose Route Start Last Admin Trade Name Freq PRN Reason Stop Dose Admin Cyclobenzaprine HCl 10 mg 02/02/20 12:25 02/02/20 12:46 Flexeril PO 02/02/20 12:26 10 mg ONETIME ONE Administration Ibuprofen 800 mg 02/02/20 12:25 02/02/20 12:46 Motrin PO 02/02/20 12:26 800 mg ONETIME ONE Administration Potassium Chloride 40 meq 02/02/20 12:54 02/02/20 13:26 Klor-Con M20 PO 02/02/20 12:55 40 meq ONETIME ONE Administration Re-Assessment/Re-Exam: Waiting urine and urine toxicology he has not given a urine specimen yet but he thinks he can go at this time. 13:14 Urinalysis okay except for small amount of ketones chemistries suggest mild hypokalemia and he is not drinking enough fluids. Head CT is unremarkable no acute changes suboptimal study however phone call from Dr. Duran and urine toxicology still pending 13:38 Roger kindly returned my phone call and but did discuss this toxicology obviously he is positive for cannabinoids his try cyclic's also came back positive I am not certain where this came from and I did discuss this with the patient he is not aware of where this came from the patient is on a different batch of THC and he says this happens for him on a frequent basis. This could be contributing to this also with the patient's been on cyclobenzaprine but has been on this for 4 years not sure it would be causing symptoms for now. I did discuss the situation with the patient the patient thinks he is okay to go home and he agrees to follow-up with the virtual psychiatry clinic at [facility]. Departure - Departure Time of Disposition: 13:40 Disposition: Home, Self-Care 01 Clinical Impression: Auditory hallucinations - Discharge Information Referrals: Loren Ram NP [Primary Care Provider] - Forms: ED Department Discharge Additional Instructions: Return to the emergency room with any questions problems or worsening symptoms. Follow-up at the [facility] [phone] and schedule an appointment to see psychiatry. Follow-up with your regular healthcare provider this next week. Sepsis Event Note (ED) - Evaluation Sepsis Screening Result: No Definite Risk - Focused Exam Vital Signs: Vital Signs Temp Pulse Resp BP Pulse Ox 02/02/20 05:50 35.8 C L 99 16 169/91 H 96
--- NOTE | 2020-02-02 08:53 | CT ---
Head CT Technique: Multiple axial sections through the brain were obtained. Intravenous contrast was not utilized. Comparison: No prior intracranial imaging is available. Findings: Ventricles along with basal cisterns and sulci over the convexities are mildly prominent. No abnormal parenchymal densities are seen. No evidence of intracranial hemorrhage. No midline shift or mass-effect is seen. Small portion of the inferior right cerebellum not included on the exam. Bone window settings were reviewed which show no acute calvarial finding. Visualized mastoid sinuses and paranasal sinuses show nothing acute. Impression: 1. Small portion of the inferior right cerebellar hemisphere not included on the exam. 2. Mild generalized atrophy. 3. Nothing acute is otherwise appreciated on noncontrast head CT exam. Diagnostic code #2 This report was dictated in MDT
[2020-02-02] MEDS ORDERED: Ibuprofen 800 MG Tab PO ONE (12:25)
[2020-02-02] MEDS ORDERED: Cyclobenzaprine 10 MG Tab PO ONE (12:25)
[2020-02-02] MEDS ORDERED: Potassium Chloride 20 MEQ Tab.ER PO ONE (12:54)
== END 2020-02-02 13:51 | disposition home or self-care (01) ==
LOC: JD.ED 05:44
DX: R44.0 Auditory hallucinations (principal); J44.9 Chronic obstructive pulmonary disease, unspecified; I10 Essential (primary) hypertension; E66.9 Obesity, unspecified; Z68.41 Body mass index [BMI] 40.0-44.9, adult; Z79.899 Other long term (current) drug therapy
CPT/HCPCS: 36415; 70450; 80053; 80306; 80307; 81003; 84443; 85025; 99285; A9270; 99283

== ENCOUNTER 2020-02-05 01:06 | Inpatient (IN) | payer MEDICARE, MEDICAID, OTHER ==
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
[2020-02-05] MEDS ORDERED: LORazepam 2 MG/ML SDV IM ONE ×2 (02:23→08:55)
[2020-02-05] MEDS ORDERED: diphenhydrAMINE 50 MG Cap PO ONE (02:24)
[2020-02-05] MEDS ORDERED: QUEtiapine 25 MG Tab PO ONE ×2 (02:25→10:41)
[2020-02-05] MEDS ORDERED: Diazepam 5 MG Tab PO ONE (10:43)
[2020-02-05] MEDS ORDERED: Ondansetron 4 MG/2 ML SDV IV PRN (11:17)
[2020-02-05] MEDS ORDERED: Acetaminophen 325 MG Tab PO PRN (11:17)
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
[2020-02-05] MEDS ORDERED: Cyclobenzaprine 10 MG Tab PO SCH (11:30)
[2020-02-05] MEDS: Diazepam 5 MG Tab PO SCH ×2 (14:36→20:27)
[2020-02-05] MEDS ORDERED: Haloperidol Lactate 5 MG/ML SDV ONE (19:55)
[2020-02-05] MEDS ORDERED: Haloperidol Lactate 5 MG/ML SDV IM ONE (20:44)
[2020-02-05] MEDS ORDERED: QUEtiapine 100 MG Tab PO SCH (21:00)
[2020-02-05] MEDS ORDERED: Haloperidol Lactate 5 MG/ML SDV IM PRN (21:17)
[2020-02-05] MEDS ORDERED: diphenhydrAMINE 50 MG/ML SDV IM PRN (21:17)
[2020-02-05] MEDS ORDERED: LORazepam 2 MG/ML SDV IM PRN (21:17)
[2020-02-06] MEDS ORDERED: OLANZapine 5 MG Tab PO SCH (09:00)
[2020-02-06] MEDS ORDERED: Docusate Sodium 100 MG Cap PO SCH (09:00)
[2020-02-06] MEDS ORDERED: Non-Formulary Medication 1 Each (Metoprolol Succinate 100 MG) PO SCH (09:00)
[2020-02-06] MEDS ORDERED: Metoprolol Succinate 50 MG Tab.ER PO SCH (09:00)
[2020-02-06] MEDS ORDERED: DOCUSATE SODIUM PO SCH (09:00)
[2020-02-06] MEDS: Diazepam 5 MG Tab PO SCH ×3 (09:23→16:38)
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
[2020-02-06 17:46] VITALS: BP 132/80; PULSE 72
== END 2020-02-06 18:09 | DRG 885 ==
LOC: JD.ED 01:06 → JD.MS 10:37
PROVIDERS: ADMIT Internal Medicine; ATTEND Internal Medicine
DX: F23 Brief psychotic disorder (principal); Z20.828 Contact with and (suspected) exposure to other viral communicable diseases; F19.20 Other psychoactive substance dependence, uncomplicated; E66.9 Obesity, unspecified; J43.1 Panlobular emphysema; Z72.820 Sleep deprivation; F12.90 Cannabis use, unspecified, uncomplicated; M19.90 Unspecified osteoarthritis, unspecified site; F22 Delusional disorders; E66.01 Morbid (severe) obesity due to excess calories; Z68.36 Body mass index [BMI] 36.0-36.9, adult; R26.81 Unsteadiness on feet; Z79.899 Other long term (current) drug therapy; I10 Essential (primary) hypertension; G89.29 Other chronic pain; M25.551 Pain in right hip; H91.91 Unspecified hearing loss, right ear; Z86.14 Personal history of Methicillin resistant Staphylococcus aureus infection; R45.1 Restlessness and agitation
CPT/HCPCS: 36415; 80053; 80306; 80307; 81001; 84443; 85025; A9270 ×2; J2060 ×2; U0002; 51798; 87070; 87641; 93005; 96372; 99222; 99239; 99285; 99285-25; J1630

== ENCOUNTER 2020-02-20 05:22 | Emergency (ER) | payer MEDICARE, MEDICAID ==
[2020-02-20 05:26] VITALS: BP 155/94; PULSE 117
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
[2020-02-20] MEDS ORDERED: Potassium Chloride 20 MEQ Tab.ER PO ONE (08:10)
== END 2020-02-20 08:29 | disposition home or self-care (01) ==
LOC: JD.ED 05:22
DX: F23 Brief psychotic disorder (principal); I10 Essential (primary) hypertension; J44.9 Chronic obstructive pulmonary disease, unspecified; E66.9 Obesity, unspecified; Z79.899 Other long term (current) drug therapy; Z68.43 Body mass index [BMI] 50.0-59.9, adult
CPT/HCPCS: 36415; 80053; 80307; 84443; 85025; 93005; 99284; A9270; 99283

== ENCOUNTER 2020-02-23 12:03 | Emergency (ER) | payer MEDICARE, MEDICAID ==
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
[2020-02-23 16:49] VITALS: BP 144/92; PULSE 102
[2020-02-23] MEDS ORDERED: Lactated Ringers 1,000 ML IV ONE (17:41)
[2020-02-23] MEDS ORDERED: Potassium Chloride 20 MEQ Tab.ER PO ONE (17:41)
== END 2020-02-23 20:15 ==
LOC: JD.ED 12:03
DX: F23 Brief psychotic disorder (principal); I10 Essential (primary) hypertension; J44.9 Chronic obstructive pulmonary disease, unspecified; E66.9 Obesity, unspecified; Z79.899 Other long term (current) drug therapy; Z20.828 Contact with and (suspected) exposure to other viral communicable diseases; Z68.41 Body mass index [BMI] 40.0-44.9, adult
CPT/HCPCS: 36415; 80053; 80306; 80307; 81001; 84443; 85025; 96360; 99285; A9270; J7120; U0002; 99284

== ENCOUNTER 2020-04-14 19:12 | Emergency (ER) | payer MEDICARE, MEDICAID ==
[2020-04-14] MEDS ORDERED: amLODIPine 5 MG Tab PO ONE (22:06)
[2020-04-14] MEDS ORDERED: Metoprolol Succinate 50 MG Tab.ER PO ONE (22:06)
[2020-04-14] MEDS ORDERED: Losartan 25 MG Tab PO ONE (22:07)
[2020-04-14] MEDS ORDERED: OLANZapine 10 MG Vial IM ONE (22:07)
[2020-04-14] MEDS ORDERED: ARIPiprazole 5 MG Tab PO ONE (22:08)
[2020-04-14] MEDS ORDERED: Benztropine 1 MG Tab PO ONE (22:08)
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
[2020-04-14 22:11] LABS: ACETAMINOPHEN 0 ug/mL (10-30)
[2020-04-14] MEDS ORDERED: Diazepam 2 MG Tab PO ONE (22:11)
[2020-04-14] MEDS ORDERED: Tamsulosin 0.4 MG Cap.ER PO ONE (22:11)
[2020-04-14 22:55] VITALS: BP 124/79; PULSE 79
== END 2020-04-15 00:07 | disposition home or self-care (01) ==
LOC: JD.ED 19:12
DX: F31.5 Bipolar disorder, current episode depressed, severe, with psychotic features (principal); I10 Essential (primary) hypertension; J44.9 Chronic obstructive pulmonary disease, unspecified; E66.9 Obesity, unspecified; Z68.36 Body mass index [BMI] 36.0-36.9, adult; Z79.899 Other long term (current) drug therapy
CPT/HCPCS: 36415; 80053; 80307; 84443; 85007; 85027; 93005; 99285; A9270; 93010; 99284

== ENCOUNTER 2020-04-21 06:04 | Emergency (ER) | payer MEDICARE, MEDICAID ==
[2020-04-21 06:21] VITALS: BP 159/96; PULSE 108
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
== END 2020-04-21 07:20 | disposition home or self-care (01) ==
LOC: JD.ED 06:04
DX: M79.652 Pain in left thigh (principal); M13.852 Other specified arthritis, left hip; R44.0 Auditory hallucinations; I10 Essential (primary) hypertension; J44.9 Chronic obstructive pulmonary disease, unspecified; F41.9 Anxiety disorder, unspecified; E66.9 Obesity, unspecified; Z79.899 Other long term (current) drug therapy; W19.XXXA Unspecified fall, initial encounter
CPT/HCPCS: 73552-LT; 99284-25

== ENCOUNTER 2020-04-21 21:18 | Emergency (ER) | payer MEDICARE, MEDICAID ==
[2020-04-21 21:23] VITALS: BP 161/91; PULSE 109
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
[2020-04-21 23:02] LABS: ACETAMINOPHEN 0 ug/mL (10-30)
== END 2020-04-21 23:36 | disposition home or self-care (01) ==
LOC: JD.ED 21:18
DX: M16.12 Unilateral primary osteoarthritis, left hip (principal); R44.3 Hallucinations, unspecified; I10 Essential (primary) hypertension; J44.9 Chronic obstructive pulmonary disease, unspecified; F41.9 Anxiety disorder, unspecified; E66.9 Obesity, unspecified; Z68.36 Body mass index [BMI] 36.0-36.9, adult
CPT/HCPCS: 36415; 73700-LT; 80053; 80307; 84443; 85025; 99284; 99284-25

== ENCOUNTER 2020-04-22 19:18 | Inpatient (IN) | payer MEDICARE, MEDICAID ==
--- NOTE | 2020-04-22 19:53 | EDM.PDOCBH ---
ED HPI GENERAL MEDICAL PROBLEM - General Chief Complaint: Behavioral/Psych Stated Complaint: MENTAL HEALTH Time Seen by Provider: 04/22/20 19:30 Source of Information: Reports: RN Notes Reviewed History Limitations: Reports: Altered Mental Status (Sleeping, does not want to wake up) - History of Present Illness INITIAL COMMENTS - FREE TEXT/NARRATIVE: Mr. Armando is a very pleasant 59-year-old gentleman with a past medical history significant for schizophrenia, who, medical records indicate, was seen in this ED on 04/14/2020 for a psychiatric evaluation due to not taking his medications. He reported hearing voices of a male telling him that he was going to kill the patient and cut him up into pieces. The patient had been very apprehensive and had been calling the local police on multiple occasions over the prior few days indicating that there was someone in his house who was going to kill him. The police investigated on multiple occasions, finding no one in the patient's home. In the ED, the patient was found to be hemodynamically stable, afebrile, saturating 93% on room air. Work-up included a CBC, CMP, TSH, acetaminophen level, salicylate level, EtOH level, and an ECG. His work-up was remarkable for hypokalemia of 2.9, with the remainder of his work-up being unremarkable. He initially agreed to, then refused to take olanzapine, therefore he was given or al aripiprazole, benztropine, diazepam, along with amlodipine, losartan and metoprolol for hypertension and tamsulosin for BPH. No psychiatric beds were available in [place], therefore he was discharged home. The patient then returned to the ED by EMS yesterday morning, 04/21/2020, with a complaint of left thigh pain. He states that someone told him to go to the police station to get help. He stated that he drove to the police station, got out of his vehicle, and laid on the grass. Voices in his head told him that he was positive for COVID-19. He is blood pressure was found to be modestly elevated, and he was found to be slightly tachycardic at 108 bpm, but afebrile, saturating 97% on room air. Work-up included x-rays of his left thigh, which showed arthritis of the hip, but no acute changes. The patient was discharged home. The patient then returned to the ED by EMS a second time yesterday, this time for left knee and left hip pain. The patient acknowledged that he has had arthritis for years, and stated that he had been trying to lose weight so that he could have surgery. He also reported that he has schizophrenia and sometimes does not take his medications. He had a friend take him to the police station [email or web address] and told him that he was worried that his brother was at a constitution party behind a car dealership, and that he heard that shots were fired and that people were dying. He realized, however, that it was not reality. Again his BP was found to be modestly elevated with mild tachycardia, afebrile, saturating 98% on room air. Work-up included a CBC, CMP, TSH level, salicylate level, acetaminophen level, EtOH level, and a CT of the left hip without contrast. The CT scan found advanced degenerative changes of the left hip, but no fracture. The remainder of his work-up was unremarkable. A aircraft sales representative from [facility] evaluated the patient and felt that he did not need to be admitted. He was going to follow-up with them today. The patient is now brought to the ED by a aircraft sales representative from [facility] who tells me that because the patient continued to call the police, they called her, she went over to the hotel where he is staying, and brought him here. She has filled out committal paperwork. She tells me that the patient actually has an residence, but he believes that there are children in the atkinson and in his furniture, and therefore he cannot stay there. He has previously slashed the atkinson and broken his furniture. She estimates that he has not consistently taken his medications for months, possibly longer. Here in the ED, the patient is found to be tachycardic at 106 bpm, otherwise, he is hemodynamically stable, afebrile, saturating 100% on room air. When I went to evaluate the patient, I found him sleeping. I was able to wake him with calling his name and tapping his shoulder, however, he immediately fell asleep again without answering questions. I tried several times to wake him, with the same result. I therefore do not know if he has been ill recently, other than from prior medical records. The patient's PCP is Loren Ram NP. He is prescribed medical marijuana by Dr. Messi Payton Left Hip Pain Score (Numeric/FACES): 5 - Related Data Allergies Allergy/AdvReac Type Severity Reaction Status Date / Time No Known Allergies Allergy Verified 04/22/20 19:33 Home Meds: Home Meds Docusate Sodium [Stool Softener] 1 tab PO DAILY 10/08/15 [History] Metoprolol Succinate [Toprol Xl] 100 mg PO DAILY 10/17/15 [History] Cyclobenzaprine [Flexeril] 10 mg PO TID 01/08/17 [History] Ibuprofen 800 mg PO TID 02/02/20 [History] Albuterol/Ipratropium [Combivent Respimat] 2 puff INH Q4HR PRN 02/05/20 [History] Fenofibrate Nanocrystallized [Fenofibrate] 1 tab PO DAILY 02/05/20 [History] Furosemide 1 tab PO BID 02/05/20 [History] Losartan [Cozaar] 1 tab PO DAILY 02/05/20 [History] Rosuvastatin [Crestor] 1 tab PO DAILY 02/05/20 [History] Tamsulosin [Flomax] 1 tab PO QID 02/05/20 [History] amLODIPine [Norvasc] 1 tab PO DAILY 02/05/20 [History] OLANZapine [ZyPREXA] 10 mg PO BID tablet 02/06/20 [Rx] diazePAM [Valium.] 5 mg PO TID tablet 02/06/20 [Rx] ARIPiprazole [Abilify] 10 mg PO ASDIRECTED #30 tab 02/20/20 [Rx] Desvenlafaxine Succinate [Pristiq ER] 50 mg PO Q24H #60 tab.er.24h 02/20/20 [Rx] Past Medical History HEENT History: Reports: Hard of Hearing Cardiovascular History: Reports: High Cholesterol, Hypertension Respiratory History: Reports: Asthma, COPD, SOB Gastrointestinal History: Reports: Bowel Obstruction Genitourinary History: Reports: Retention, Urinary Musculoskeletal History: Reports: Osteoarthritis Psychiatric History: Reports: Addiction (opioids), Anxiety, Schizophrenia Endocrine/Metabolic History: Reports: Obesity/BMI 30+ - Infectious Disease History Infectious Disease History: Reports: MRSA - Past Surgical History GI Surgical History: Reports: Hernia, Abdominal (periumbilical, as a child) Social & Family History - Family History Family Medical History: Noncontributory - Tobacco Use Years of Tobacco use: 38 Packs/Tins Daily: 2 Month/Year Tobacco Last Used: Quit 2017 - Alcohol Use Alcohol Use History: Yes Alcohol Use Frequency: Socially - Recreational Drug Use Recreational Drug Use: Yes Drug Use in Last 12 Months: Yes Recreational Drug Type: Reports: Marijuana/Hashish (smokes daily), Other (see below) (Opioids) - Living Situation & Occupation Living situation: Reports: Single, Alone Occupation: Unemployed ED ROS GENERAL - Review of Systems Review Of Systems: Comprehensive ROS is negative, except as noted in HPI. ED EXAM, BEHAVIORAL HEALTH - Physical Exam Exam: See Below Exam Limited By: Other (Sleeping) General Appearance: WD/WN, No Apparent Distress, Other (Sleeping) Ears: Normal External Exam, Normal Canal Nose: Normal Inspection Throat/Mouth: Normal Inspection, Normal Lips, No Airway Compromise Head: Atraumatic, Normocephalic Neck: Normal Inspection, Full Range of Motion Respiratory/Chest: No Respiratory Distress, Lungs Clear, Normal Breath Sounds, No Accessory Muscle Use Cardiovascular: Normal Peripheral Pulses, No Gallop, No JVD, No Murmur, No Rub, Tachycardia (regular) GI/Abdominal: Normal Bowel Sounds, Soft, Non-Tender, No Organomegaly, No Distention, No Abnormal Bruit, No Mass Back Exam: Normal Inspection, Full Range of Motion, NT Extremities: Normal Range of Motion, Normal Capillary Refill, Other (1-2+ bilateral pretibial edema) Skin Exam: Warm, Dry, Normal color, No rash EKG INTERPRETATION EKG Date: 04/22/20 Time: 19:57 Rhythm: Other (Sinus tachycardia) Rate (Beats/Min): 101 [place]: Normal P-Wave: Present (Borderline 1st degree AVB) QRS: Normal ST-T: Normal QT: Prolonged (QTc 610 ms) Comparison: Change From Previous EKG (QTc prolongation new since 04/14/2020) COURSE, BEHAVIORAL HEALTH COMP - Course Vital Signs: Last Vital Signs Temp 36.6 C 04/23/20 01:34 Pulse 92 04/23/20 01:34 Resp 16 04/23/20 01:34 BP 169/99 H 04/23/20 01:34 Pulse Ox 97 04/23/20 01:34 Orders, Labs, Meds: Active Orders 24 hr Category Date Time Status Patient Status [ADT] Routine ADT 04/23/20 01:05 Active EKG Documentation Completion [RC] STAT Care 04/22/20 19:49 Active Laboratory Tests 04/22/20 04/22/20 04/22/20 Range/Units 20:04 20:04 20:04 WBC 7.21 (4.23-9.07) K/mm3 RBC 4.17 L (4.63-6.08) M/mm3 Hgb 11.5 L (13.7-17.5) gm/dl Hct 35.3 L (40.1-51.0) % MCV 84.7 (79.0-92.2) fl MCH 27.6 (25.7-32.2) pg MCHC 32.6 (32.2-35.5) g/dl RDW Std Deviation 43.0 (35.1-43.9) fL Plt Count 186 (163-337) K/mm3 MPV 11.2 (9.4-12.3) fl Neutrophils % (Manual) 74 H (40-60) % Band Neutrophils % 0 (0-10) % Lymphocytes % (Manual) 15 L (20-40) % Atypical Lymphs % 0 % Monocytes % (Manual) 8 (2-10) % Eosinophils % (Manual) 2 (0.8-7.0) % Basophils % (Manual) 1 (0.2-1.2) Platelet Estimate Adequate Plt Morphology Comment Normal Hypochromasia 1+ slight RBC Morph Comment Abnormal Sodium 145 (136-145) mEq/L Potassium 3.0 L (3.5-5.1) mEq/L Chloride 106 (98-107) mEq/L Carbon Dioxide 28 (21-32) mEq/L Anion Gap 14.0 (5-15) BUN 20 H (7-18) mg/dL Creatinine 1.2 (0.7-1.3) mg/dL Est Cr Clr Drug Dosing 65.71 mL/min Estimated GFR (MDRD) > 60 (>60) mL/min BUN/Creatinine Ratio 16.7 (14-18) Glucose 93 (74-106) mg/dL Calcium 9.1 (8.5-10.1) mg/dL Magnesium 1.4 L (1.8-2.4) mg/dl Total Bilirubin 0.6 (0.2-1.0) mg/dL AST 27 (15-37) U/L ALT 31 (16-63) U/L Alkaline Phosphatase 75 (46-116) U/L Total Protein 6.6 (6.4-8.2) g/dl Albumin 3.4 (3.4-5.0) g/dl Globulin 3.2 gm/dL Albumin/Globulin Ratio 1.1 (1-2) TSH 3rd Generation 1.021 (0.358-3.74) uIU/mL Salicylates 2.3 L (2.8-20) mg/dL Urine Opiates Screen (EREKOW=502) Ur Buprenorphine Scrn (CUTOFF=10) Ur Oxycodone Screen (ALB9QI=310) Urine Methadone Screen (IQX7IR=527) Ur Propoxyphene Screen (PVJSIF=142) Acetaminophen 0 L (10-30) ug/mL Ur Barbiturates Screen (YSOEZK=578) Ur Tricyclics Screen (VDGHTB=150) Ur Phencyclidine Scrn (CUTOFF=25) Ur Amphetamine Screen (MDXSJM=034) U Methamphetamines Scrn (UKZGRY=854) U Benzodiazepines Scrn (IZIAQZ=446) U Cocaine Metab Screen (XMLWTF=246) U Marijuana (THC) Screen (CUTOFF=50) Ethyl Alcohol 0.00 (0.00) gm% SARS-CoV-2 RNA (JAYLIN) (NEGATIVE) 04/22/20 04/22/20 Range/Units 21:00 21:05 WBC (4.23-9.07) K/mm3 RBC (4.63-6.08) M/mm3 Hgb (13.7-17.5) gm/dl Hct (40.1-51.0) % MCV (79.0-92.2) fl MCH (25.7-32.2) pg MCHC (32.2-35.5) g/dl RDW Std Deviation (35.1-43.9) fL Plt Count (163-337) K/mm3 MPV (9.4-12.3) fl Neutrophils % (Manual) (40-60) % Band Neutrophils % (0-10) % Lymphocytes % (Manual) (20-40) % Atypical Lymphs % % Monocytes % (Manual) (2-10) % Eosinophils % (Manual) (0.8-7.0) % Basophils % (Manual) (0.2-1.2) Platelet Estimate Plt Morphology Comment Hypochromasia RBC Morph Comment Sodium (136-145) mEq/L Potassium (3.5-5.1) mEq/L Chloride (98-107) mEq/L Carbon Dioxide (21-32) mEq/L Anion Gap (5-15) BUN (7-18) mg/dL Creatinine (0.7-1.3) mg/dL Est Cr Clr Drug Dosing mL/min Estimated GFR (MDRD) (>60) mL/min BUN/Creatinine Ratio (14-18) Glucose (74-106) mg/dL Calcium (8.5-10.1) mg/dL Magnesium (1.8-2.4) mg/dl Total Bilirubin (0.2-1.0) mg/dL AST (15-37) U/L ALT (16-63) U/L Alkaline Phosphatase (46-116) U/L Total Protein (6.4-8.2) g/dl Albumin (3.4-5.0) g/dl Globulin gm/dL Albumin/Globulin Ratio (1-2) TSH 3rd Generation (0.358-3.74) uIU/mL Salicylates (2.8-20) mg/dL Urine Opiates Screen Negative (OLGGRJ=248) Ur Buprenorphine Scrn Negative (CUTOFF=10) Ur Oxycodone Screen Negative (PQF5XF=851) Urine Methadone Screen Negative (MCV1QF=305) Ur Propoxyphene Screen Negative (TMCDUM=907) Acetaminophen (10-30) ug/mL Ur Barbiturates Screen Negative (FBCGXN=575) Ur Tricyclics Screen Presumptive positive H (UFLNJF=263) Ur Phencyclidine Scrn Negative (CUTOFF=25) Ur Amphetamine Screen Negative (DBLTBA=707) U Methamphetamines Scrn Negative (XAORMR=108) U Benzodiazepines Scrn Presumptive positive H (FASEHS=060) U Cocaine Metab Screen Presumptive positive H (AQBGCW=752) U Marijuana (THC) Screen Presumptive positive H (CUTOFF=50) Ethyl Alcohol (0.00) gm% SARS-CoV-2 RNA (JAYLIN) Negative (NEGATIVE) Medications Discontinued Medications Generic Name Dose Route Start Last Admin Trade Name Freq PRN Reason Stop Dose Admin Magnesium Sulfate 4 gm/ Premix 50 mls @ 12.5 mls/hr 04/22/20 22:17 04/22/20 22:38 IV 04/23/20 02:16 12.5 mls/hr ONETIME STA Administration Potassium Chloride 40 meq 04/23/20 02:00 04/23/20 03:20 Klor-Con M20 PO 04/23/20 02:01 40 meq ONETIME ONE Administration Medical Clearance: 04/22/20 19:51 As above, the patient is brought to the ED by someone from [facility] in order for him to be psychiatrically admitted for auditory and visual hallucinations and his not taking his psychiatric medications. At triage, he was slightly tachycardic, although he was not when I evaluated him. He was sleeping, although arousable with verbal and tactile stimuli, however, he immediately fell asleep again. I was unable to get him to answer any questions before he would fall asleep again, therefore I do not know his perspective on the situation. I have ordered a standard psychiatric medical clearance panel, along with a swab for the SARS-CoV-2 virus. 04/22/20 22:18 The patient's CBC is remarkable for a H/H slightly depressed at 11.5/35.3, with the remainder of his CBC being normal. His CMP is remarkable for a potassium depressed at 3.0 and a BUN slightly elevated at 20 with a Cr normal at 1.2 and the remainder of his CMP being unremarkable. His magnesium level is depressed at 1.4. His TSH is within normal limits at 1.021. His acetaminophen level is 0. His salicylate level is within normal limits at 2.3. His EtOH level is 0.00. His urine drug screen is positive for tricyclic antidepressants, benzodiazepines, cocaine, and marijuana. Results of his swab for the SARS-CoV-2 virus are still pending. Based on the above, and with consideration of his QTc being prolonged, I have ordered a 4 g Mg-rider. Once infused, the patient will be given 40 mEq of oral KCl. 04/22/20 23:39 The patient's swab for the SARS-CoV-2 virus has returned negative. While I agree that the patient requires psychiatric admission, he will not be medically cleared until his QTc returns to normal. He was treated with 10 mg of aripiprazole on the evening of 04/14/2020. At that time, his QTc was normal. Aripiprazole can prolong the QT interval, and has a T-1/2 of 75 hours. Of course, it is also possible that the patient took some other medication or illicit substance in the interim that is prolonging his QTc, therefore it is difficult to say how long it will be before his QT interval returns to normal. Until that time, however, the patient will need to be on telemetry. He therefore requires a medical admission at this time, not a psychiatric admission. 04/22/20 23:[address] [facility] is on diversion. 04/22/20 23:43 Notified that [facility] is also on diversion. 04/23/20 00:[address] Evans, [facility] Hospitalist, who agreed to admit the patient to telemetry. Departure - Departure Time of Disposition: 00:11 Disposition: Admitted As Inpatient 68 Condition: Fair Clinical Impression: Schizophrenia, QT prolongation, Hypomagnesemia, Hypokalemia, Polysubstance abuse - Discharge Information *PRESCRIPTION DRUG MONITORING PROGRAM REVIEWED*: Not Applicable *COPY OF PRESCRIPTION DRUG MONITORING REPORT IN PATIENT JUSTA: Not Applicable Sepsis Event Note (ED) - Evaluation Sepsis Screening Result: No Definite Risk - Focused Exam Vital Signs: Vital Signs Temp Pulse Resp BP Pulse Ox 04/22/20 19:27 36.1 C 106 H 18 109/77 100 - My Orders Last 24 Hours: My Active Orders 04/22/20 19:49 EKG Documentation Completion [RC] STAT 04/23/20 01:05 Patient Status [ADT] Routine - Assessment/Plan Last 24 Hours: My Active Orders 04/22/20 19:49 EKG Documentation Completion [RC] STAT 04/23/20 01:05 Patient Status [ADT] Routine
[2020-04-22 20:42] LABS: ACETAMINOPHEN 0 ug/mL (10-30)
[2020-04-22] MEDS ORDERED: Magnesium Sulfate/Water 4 GM in Premix Bag 1 BAG IV STA (22:17)
[2020-04-23] MEDS ORDERED: Potassium Chloride 20 MEQ Tab.ER PO ONE (02:00)
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
[2020-04-23] MEDS ORDERED: Sodium Chloride 0.9% 10 ML Syringe FLUSH PRN (08:26)
[2020-04-23] MEDS ORDERED: Acetaminophen 325 MG Tab PO PRN (08:26)
[2020-04-23] MEDS ORDERED: Albuterol 0.083% 2.5 MG/3 ML Neb Soln NEB PRN (08:26)
[2020-04-23] MEDS ORDERED: Magnesium Sulfate/Water 2 GM/50 ML BAG IV ONE (08:30)
[2020-04-23] MEDS ORDERED: Enoxaparin 30 MG/0.3 ML Syringe SUBCUT SCH (09:00)
[2020-04-23 09:44] VITALS: PULSE 95
[2020-04-23 11:41] VITALS: BP 161/93
--- NOTE | 2020-04-23 13:03 | PCM.DCSUM1 ---
Discharge Summary - Hospital Course Free Text/Narrative:: Admitted secondary to prolonged QT interval. This was new finding. Diagnosis: Stroke: No - Discharge Data Discharge Date: 04/23/20 Discharge Disposition: DC/Tfer to Psych Hosp/Unit 65 Condition: Good - Referral to Home Health Primary Care Physician: Loren Ram NP - Discharge Diagnosis/Problem(s) (1) QT prolongation SNOMED Code(s): 023402185 ICD Code: R94.31 - ABNORMAL ELECTROCARDIOGRAM [ECG] [EKG] Status: Resolved Priority: High Current Visit: Yes Problem Details: New findings (2) Hypokalemia SNOMED Code(s): 33792499 ICD Code: E87.6 - HYPOKALEMIA Status: Acute Priority: High Current Visit: Yes (3) Hypomagnesemia SNOMED Code(s): 887961895 ICD Code: E83.42 - HYPOMAGNESEMIA Status: Resolved Priority: High Current Visit: Yes (4) Polysubstance abuse SNOMED Code(s): 413521841 ICD Code: F19.10 - OTHER PSYCHOACTIVE SUBSTANCE ABUSE, UNCOMPLICATED Status: Chronic Priority: High Current Visit: Yes (5) Schizophrenia SNOMED Code(s): 56343883 ICD Code: F20.9 - SCHIZOPHRENIA, UNSPECIFIED Status: Chronic Priority: Medium Current Visit: Yes Qualifiers: Schizophrenia type: undifferentiated schizophrenia Qualified Code(s): F20.3 - Undifferentiated schizophrenia - Patient Summary/Data Consults: Consultations 04/23/20 08:26 Consult to Case Management/Concrete Form Setter [CONS] Routine Hospital Course: Patient is a 59-year-old gentleman who had presented to the emergency department apparently voluntarily. He reportedly has a history of schizophrenia and has been hearing voices and auditory hallucinations. The patient also had been noted in the emergency department to have an EKG that was consistent with prolonged QT at 610 ms. The patient had been on multiple medications which we did prolong his QT interval and he did have drug toxicology screen which was positive for benzodiazepines, tricyclics, cocaine and marijuana. Patient says that he has been compliant with his medications. He is a poor historian. Therefore most of the information has been taken from his medical record. Patient does have a history of multiple emergency room visits and as of last night psychiatric beds were not available therefore he was admitted and had occasions which have QT prolonging effects have been discontinued. The patient has not been able to participate very well in his history and physical. Emergency room the patient's Covid testing was negative. The patient has i mproved with a short course of hospitalization with IV fluid support. The patient had a repeat EKG which showed resolution of the prolonged QT interval. Patient's latest EKG which was obtained at 9:16 AM on April 23, 2020 showed that his QTC level had normalized to 441 ms. Patient's history at times has been somewhat confused and fragmented. Most of the admitting information had been obtained from the previous records. The patient's hypokalemia and hypomagnesemia have been resolved. Should be noted also that the patient has severe osteoarthritis of both of his hips and he uses 2 canes to walk. Client Service Executive from [facility] have placed a commitment order on the patient according to the emergency room documents. The patient will be discharged from acute hospitalization and has been recommended for inpatient treatment and adjustment of his medications. The patient's reported medications do not match any list in the patient's records. The patient's medications that have been associated with prolonging QT interval have been discontinued. The patient also has been ordered to have 2 mg of Ativan p.o. 1/2-hour prior to transportation. I spoke with Dr. Banuelos, who accepts the patient. - Patient Instructions Diet: Heart Healthy Diet Activity: No Lifting Over 10 Pounds, No Strenuous Activities - Discharge Plan *PRESCRIPTION DRUG MONITORING PROGRAM REVIEWED*: Not Applicable *COPY OF PRESCRIPTION DRUG MONITORING REPORT IN PATIENT JUSTA: Not Applicable Home Medications: Home Meds Docusate Sodium [Stool Softener] 1 tab PO DAILY 10/08/15 [History] Metoprolol Succinate [Toprol Xl] 100 mg PO DAILY 10/17/15 [History] Cyclobenzaprine [Flexeril] 10 mg PO TID 01/08/17 [History] Ibuprofen 800 mg PO TID 02/02/20 [History] Albuterol/Ipratropium [Combivent Respimat] 2 puff INH Q4HR PRN 02/05/20 [History] Fenofibrate Nanocrystallized [Fenofibrate] 1 tab PO DAILY 02/05/20 [History] Furosemide 1 tab PO BID 02/05/20 [History] Losartan [Cozaar] 1 tab PO DAILY 02/05/20 [History] Rosuvastatin [Crestor] 1 tab PO DAILY 02/05/20 [History] Tamsulosin [Flomax] 1 tab PO QID 02/05/20 [History] amLODIPine [Norvasc] 1 tab PO DAILY 02/05/20 [History] OLANZapine [ZyPREXA] 10 mg PO BID tablet 02/06/20 [Rx] diazePAM [Valium.] 5 mg PO TID tablet 02/06/20 [Rx] ARIPiprazole [Abilify] 10 mg PO ASDIRECTED #30 tab 02/20/20 [Rx] Desvenlafaxine Succinate [Pristiq ER] 50 mg PO Q24H #60 tab.er.24h 02/20/20 [Rx] Oxygen Therapy Mode: Room Air Forms: ED Department Discharge Referrals: Messi Pyaton DO [Physician] - Loren Ram NP [Primary Care Provider] - - Discharge Summary/Plan Comment DC Time >30 min.: Yes - General Info Admission Dx/Problem (Free Text: Admission Diagnosis/Problem Admission Diagnosis/Problem Prolonged QT interval - Review of Systems General: Reports: Weakness, Fatigue HEENT: Reports: No Symptoms Pulmonary: Reports: No Symptoms Cardiovascular: Reports: No Symptoms Gastrointestinal: Reports: No Symptoms Genitourinary: Reports: No Symptoms Musculoskeletal: Reports: Back Pain, Leg Pain Skin: Reports: No Symptoms Neurological: Reports: Confusion Psychiatric: Reports: Confusion, Anxiety, Hallucinations - Patient Data Vitals - Most Recent: Last Vital Signs Temp 36.2 C 04/23/20 11:38 Pulse 95 04/23/20 08:17 Resp 14 04/23/20 11:38 BP 161/93 H 04/23/20 11:38 Pulse Ox 98 04/23/20 11:38 Weight - Most Recent: 119.612 kg I&O - Last 24 hours: Intake & Output 04/22/20 04/23/20 04/23/20 22:59 06:59 14:59 Intake Total 100 240 Output Total 0 200 Balance 100 40 Lab Results - Last 24 hrs: Laboratory Results - last 24 hr 04/22/20 04/22/20 04/22/20 Range/Units 20:04 20:04 20:04 WBC 7.21 (4.23-9.07) K/mm3 RBC 4.17 L (4.63-6.08) M/mm3 Hgb 11.5 L (13.7-17.5) gm/dl Hct 35.3 L (40.1-51.0) % MCV 84.7 (79.0-92.2) fl MCH 27.6 (25.7-32.2) pg MCHC 32.6 (32.2-35.5) g/dl RDW Std Deviation 43.0 (35.1-43.9) fL Plt Count 186 (163-337) K/mm3 MPV 11.2 (9.4-12.3) fl Neutrophils % (Manual) 74 H (40-60) % Band Neutrophils % 0 (0-10) % Lymphocytes % (Manual) 15 L (20-40) % Atypical Lymphs % 0 % Monocytes % (Manual) 8 (2-10) % Eosinophils % (Manual) 2 (0.8-7.0) % Basophils % (Manual) 1 (0.2-1.2) Platelet Estimate Adequate Plt Morphology Comment Normal Hypochromasia 1+ slight RBC Morph Comment Abnormal Sodium 145 (136-145) mEq/L Potassium 3.0 L (3.5-5.1) mEq/L Chloride 106 (98-107) mEq/L Carbon Dioxide 28 (21-32) mEq/L Anion Gap 14.0 (5-15) BUN 20 H (7-18) mg/dL Creatinine 1.2 (0.7-1.3) mg/dL Est Cr Clr Drug Dosing 65.71 mL/min Estimated GFR (MDRD) > 60 (>60) mL/min BUN/Creatinine Ratio 16.7 (14-18) Glucose 93 (74-106) mg/dL Calcium 9.1 (8.5-10.1) mg/dL Magnesium 1.4 L (1.8-2.4) mg/dl Total Bilirubin 0.6 (0.2-1.0) mg/dL AST 27 (15-37) U/L ALT 31 (16-63) U/L Alkaline Phosphatase 75 (46-116) U/L Total Protein 6.6 (6.4-8.2) g/dl Albumin 3.4 (3.4-5.0) g/dl Globulin 3.2 gm/dL Albumin/Globulin Ratio 1.1 (1-2) TSH 3rd Generation 1.021 (0.358-3.74) uIU/mL Salicylates 2.3 L (2.8-20) mg/dL Urine Opiates Screen (KYGAHV=857) Ur Buprenorphine Scrn (CUTOFF=10) Ur Oxycodone Screen (UEQ4TU=560) Urine Methadone Screen (RZP5KD=995) Ur Propoxyphene Screen (ZEZLSG=252) Acetaminophen 0 L (10-30) ug/mL Ur Barbiturates Screen (XWDMNP=123) Ur Tricyclics Screen (FUFWHZ=157) Ur Phencyclidine Scrn (CUTOFF=25) Ur Amphetamine Screen (NBAFFK=105) U Methamphetamines Scrn (ZECUXU=619) U Benzodiazepines Scrn (PZNRTL=767) U Cocaine Metab Screen (ZYJMRM=778) U Marijuana (THC) Screen (CUTOFF=50) Ethyl Alcohol 0.00 (0.00) gm% SARS-CoV-2 RNA (JAYLIN) (NEGATIVE) 04/22/20 04/22/20 04/23/20 Range/Units 21:00 21:05 04:37 WBC (4.23-9.07) K/mm3 RBC (4.63-6.08) M/mm3 Hgb (13.7-17.5) gm/dl Hct (40.1-51.0) % MCV (79.0-92.2) fl MCH (25.7-32.2) pg MCHC (32.2-35.5) g/dl RDW Std Deviation (35.1-43.9) fL Plt Count (163-337) K/mm3 MPV (9.4-12.3) fl Neutrophils % (Manual) (40-60) % Band Neutrophils % (0-10) % Lymphocytes % (Manual) (20-40) % Atypical Lymphs % % Monocytes % (Manual) (2-10) % Eosinophils % (Manual) (0.8-7.0) % Basophils % (Manual) (0.2-1.2) Platelet Estimate Plt Morphology Comment Hypochromasia RBC Morph Comment Sodium 144 (136-145) mEq/L Potassium 2.6 L (3.5-5.1) mEq/L Chloride 107 (98-107) mEq/L Carbon Dioxide 26 (21-32) mEq/L Anion Gap 13.6 (5-15) BUN 16 (7-18) mg/dL Creatinine 0.9 (0.7-1.3) mg/dL Est Cr Clr Drug Dosing 93.50 mL/min Estimated GFR (MDRD) > 60 (>60) mL/min BUN/Creatinine Ratio 17.8 (14-18) Glucose 94 (74-106) mg/dL Calcium 8.2 L (8.5-10.1) mg/dL Magnesium 1.9 (1.8-2.4) mg/dl Total Bilirubin (0.2-1.0) mg/dL AST (15-37) U/L ALT (16-63) U/L Alkaline Phosphatase (46-116) U/L Total Protein (6.4-8.2) g/dl Albumin (3.4-5.0) g/dl Globulin gm/dL Albumin/Globulin Ratio (1-2) TSH 3rd Generation (0.358-3.74) uIU/mL Salicylates (2.8-20) mg/dL Urine Opiates Screen Negative (GXCYUL=500) Ur Buprenorphine Scrn Negative (CUTOFF=10) Ur Oxycodone Screen Negative (PPH5UE=380) Urine Methadone Screen Negative (PVU2TX=002) Ur Propoxyphene Screen Negative (BNNPNM=393) Acetaminophen (10-30) ug/mL Ur Barbiturates Screen Negative (NZXRGE=977) Ur Tricyclics Screen Presumptive positive H (FYPEWX=742) Ur Phencyclidine Scrn Negative (CUTOFF=25) Ur Amphetamine Screen Negative (BKZNWJ=518) U Methamphetamines Scrn Negative (FOYWHM=295) U Benzodiazepines Scrn Presumptive positive H (NCLCMU=650) U Cocaine Metab Screen Presumptive positive H (TZJEDY=521) U Marijuana (THC) Screen Presumptive positive H (CUTOFF=50) Ethyl Alcohol (0.00) gm% SARS-CoV-2 RNA (JAYLIN) Negative (NEGATIVE) Med Orders - Current: Current Medications Acetaminophen (Tylenol) 650 mg PO Q4H PRN PRN Reason: Pain (Mild 1-3)/fever Albuterol (Proventil Neb Soln) 2.5 mg NEB Q2H PRN PRN Reason: Shortness Of Breath/wheezing Enoxaparin Sodium (Lovenox) 30 mg SUBCUT DAILY GRACE Last Admin: 04/23/20 09:23 Dose: 30 mg Documented by: Sodium Chloride (Saline Flush) 10 ml FLUSH ASDIRECTED PRN PRN Reason: Keep Vein Open Discontinued Medications Magnesium Sulfate 4 gm/ Premix 50 mls @ 12.5 mls/hr IV ONETIME STA Stop: 04/23/20 02:16 Last Admin: 04/22/20 22:38 Dose: 12.5 mls/hr Documented by: Magnesium Sulfate (Magnesium Sulfate In Water Premix) 2 gm in 50 mls @ 25 mls/hr IV ONETIME ONE Stop: 04/23/20 10:29 Last Admin: 04/23/20 09:23 Dose: 25 mls/hr Documented by: Potassium Chloride (Klor-Con M20) 40 meq PO ONETIME ONE Stop: 04/23/20 02:01 Last Admin: 04/23/20 03:20 Dose: 40 meq Documented by: - Exam Quality Assessment: Denies: Supplemental Oxygen General: Reports: Alert, Lethargic HEENT: Reports: Pupils Equal, Pupils Reactive Neck: Reports: Supple, Trachea Midline Lungs: Reports: Clear to Auscultation, Normal Respiratory Effort Cardiovascular: Reports: Regular Rate, Tachycardia GI/Abdominal Exam: Normal Bowel Sounds, Soft, No Distention (Male) Exam: Deferred Rectal (Males) Exam: Deferred Back Exam: Reports: Normal Inspection, Full Range of Motion Extremities: Limited Range of Motion Skin: Reports: Warm, Dry, Intact Neurological: Reports: No New Focal Deficit Psy/Mental Status: Reports: Alert, Hallucinations #1 Interpretation EKG Date: 04/23/20 Time: 09:16 Rhythm: NSR Rate (Beats/Min): 89 [place]: Normal P-Wave: Present QRS: Normal ST-T: Normal QT: Normal IN/PQ Interval: 441 ms Comparison: Change From Previous EKG (Normalization of QTR interval)
[2020-04-23] MEDS ORDERED: LORazepam 1 MG Tab PO ONE ×2 (13:28→14:00)
== END 2020-04-23 14:05 | DRG 309 ==
LOC: JD.ED 19:18 → JD.MS 04-23 01:17
PROVIDERS: ADMIT Internal Medicine; ATTEND Internal Medicine
DX: F20.9 Schizophrenia, unspecified (principal); I45.81 Long QT syndrome; F20.0 Paranoid schizophrenia; E83.42 Hypomagnesemia; F19.10 Other psychoactive substance abuse, uncomplicated; E78.00 Pure hypercholesterolemia, unspecified; M16.0 Bilateral primary osteoarthritis of hip; E87.6 Hypokalemia; M19.90 Unspecified osteoarthritis, unspecified site; H91.91 Unspecified hearing loss, right ear; I10 Essential (primary) hypertension; J44.9 Chronic obstructive pulmonary disease, unspecified; R33.9 Retention of urine, unspecified; Z20.828 Contact with and (suspected) exposure to other viral communicable diseases; T50.995A Adverse effect of other drugs, medicaments and biological substances, initial encounter; G89.29 Other chronic pain; F14.10 Cocaine abuse, uncomplicated; F12.10 Cannabis abuse, uncomplicated; F13.10 Sedative, hypnotic or anxiolytic abuse, uncomplicated; F41.9 Anxiety disorder, unspecified; E66.9 Obesity, unspecified; Z79.899 Other long term (current) drug therapy; Z86.14 Personal history of Methicillin resistant Staphylococcus aureus infection; Z68.38 Body mass index [BMI] 38.0-38.9, adult
CPT/HCPCS: 36415; 80053; 80306; 80307 ×3; 83735; 84443; 85007; 85027; 93005; J3475; U0002; 80048; 84132; 96365; 96366; 99285-25; A9270-GY; J1650